=== PATIENT | male | born 1980 | race Caucasian/White ===

== ENCOUNTER 2021-11-26 13:11 | Emergency (ER) | payer SELFPAY ==
--- NOTE | 2021-11-26 13:54 | XRAY ---
Indication: Pain and swelling following injury. Comparison: None 3 portable views right hand demonstrates nondisplaced fracture base 5th metacarpal with soft tissue swelling. No other bony, articular, or soft tissue abnormalities.
--- NOTE | 2021-11-26 14:16 | ERPHSYRPT ---
- History of Present Illness Source: patient Exam Limitations: no limitations Patient Subjective Stated Complaint: PT states "I was working on a house and tripped carrying a saw and when I landed I think my hand twisted wrong and the outside of my right hand is killing me." Triage Nursing Assessment: Pt presented alert and oriented X3, skin pwd. Pt right lateral hand is tender and slightly swollen. CSM X 4 throughout. Physician History: 41 yo wm fell while working on father in law's house injuring his R hand. He denies other injuries. Pt is R handed and pain is moderate. It is worse w movement. Occurred: just prior to arrival Method of Injury: fell Quality: constant Severity of Pain-Max: moderate Severity of Pain-Current: mild Extremities Pain Location: hand: right Modifying Factors: Improves With: nothing, movement Associated Symptoms: none Allergies/Adverse Reactions: No Known Drug Allergies Allergy (Verified 11/26/21 13:24) Hx Tetanus, Diphtheria Vaccination/Date Given: Yes Hx Influenza Vaccination/Date Given: No Hx Pneumococcal Vaccination/Date Given: No Immunizations Up to Date: Yes Travel Risk - International Travel Have you traveled outside of the country in past 3 weeks: No - Coronavirus Screening Are you exhibiting any of the following symptoms?: No Close contact with a COVID-19 positive Pt in past 14-21 Days: No - Vaccine Status Have you recieved a Covid-19 vaccination: No - Review of Systems Constitutional: No Symptoms Eyes: No Symptoms Ears, Nose, & Throat: No Symptoms Respiratory: No Symptoms Cardiac: No Symptoms Abdominal/Gastrointestinal: No Symptoms Genitourinary Symptoms: No Symptoms Skin: No Symptoms Neurological: No Symptoms Psychological: No Symptoms Endocrine: No Symptoms Hematologic/Lymphatic: No Symptoms Immunological/Allergic: No Symptoms - Past Medical History Pertinent Past Medical History: Yes GI Medical History: GERD - Past Surgical History Past Surgical History: Yes Other Surgical History: oral - Social History Smoking Status: Current every day smoker How long have you smoked: years Exposure to second hand smoke: Yes Drug Use: none Patient Lives Alone: No - Nursing Vital Signs Nursing Vital Signs: Initial Vital Signs Temperature 98.3 F 11/26/21 13:20 Pulse Rate 85 11/26/21 13:20 Respiratory Rate 20 11/26/21 13:20 Blood Pressure 141/82 11/26/21 13:20 O2 Sat by Pulse Oximetry 97 11/26/21 13:20 Pain Scale Pain Intensity 10 Hypertensive - Physical Exam General Appearance: no apparent distress Eyes, Ears, Nose, Throat Exam: normal ENT inspection, TMs normal, pharynx no rmal, moist mucous membranes Neck Exam: normal inspection, non-tender, supple, full range of motion, No Brudzinski, No Kernig's, No meningismus, No carotid bruit Cardiovascular/Respiratory Exam: chest non-tender, normal breath sounds, regular rate/rhythm, heart sounds normal, no ecchymosis Abdominal Exam: non-tender, soft Back Exam: normal inspection, normal range of motion, No CVA tenderness, No vertebral tenderness Shoulder Exam: normal inspection, non-tender Elbow/Forearm Exam: normal inspection, non-tender Wrist Exam: normal inspection, non-tender Hand Exam: bone tenderness (TTP R ulnar hand w edema/No ecchymosis/Good radial pulse, distal sensation, and capillary return) DTR - Upper Extremity Exam: bicep (R): 2+, bicep (L): 2+ Neuro/Tendon Exam: normal sensation, normal motor functions, normal tendon functions, responds to pain Mental Status Exam: alert, oriented x 3, cooperative Skin Exam: normal color, warm, dry SpO2 Interpretation: normal SpO2: 97 O2 Delivery: Room Air Procedures - Splinting Time of Procedure: 14:08 Location of Splint: Right, Hand Type of Splint: Orthoglass Short Arm Splint Splint Applied By: ED Physician Pre-Proc Neuro Vasc Exam: normal Post-Proc Neuro Vasc Exam: neurovascular intact - Course Nursing assessment & vital signs reviewed: Yes - Radiology Exams Hand X-ray Interpretation: Discussed w/ radiologist (R [id number] fx base of 5th digit) Ordered Tests: Active Orders 24 hr Category Date Time Status HAND (MINIMUM 3 VIEWS) Stat Exams 11/26/21 Completed Medication Summary Discontinued Medications Generic Name Dose Route Start Last Admin Trade Name Freq PRN Reason Stop Dose Admin Ketorolac Tromethamine 30 mg 11/26/21 14:16 11/26/21 14:22 Ketorolac Tromethamine 30 Mg/Ml Inj IM 11/26/21 14:17 30 mg STAT ONE Administration Ketorolac Tromethamine Confirm 11/26/21 14:18 Ketorolac Tromethamine 30 Mg/Ml Inj Administered 11/26/21 14:19 Dose 30 mg .ROUTE .STK-MED ONE - Progress Progress: improved Counseled pt/family regarding: diagnosis, need for follow-up, rad results - Departure Departure Disposition: Home Clinical Impression: Metacarpal bone fracture Condition: Stable Critical Care Time: No Referrals: [facility] - [facility] [employer] [facility] [NON-STAFF PHY W/O PRIVILEGES] - Follow up/PCP as directed Instructions: Hand Fracture (DC) Additional Instructions: Ice for 12-24 hours Pain meds as needed(use a stool softener) Follow up in Ortho clinic M- 8- or back in [place] Prescriptions: Hydrocodone/Acetaminophen [Hydrocodone-Acetamin 5-325 mg] 1 each PO Q4HPRN PRN #6 tablet MDD 4 tabs PRN Reason: Pain
[2021-11-26] MEDS ORDERED: TORAdol 30 mg Injection ONE (14:18)
[2021-11-26] MEDS: TORAdol 30 mg Injection IM ONE (14:22)
[2021-11-26 14:42] VITALS: BP 132/88; PULSE 90
[2021-11-26 15:27] VITALS: O2SAT 97
== END 2021-11-26 14:42 | disposition home or self-care (01) ==
LOC: ED 13:11
DX: S62.346A Nondisplaced fracture of base of fifth metacarpal bone, right hand, initial encounter for closed fracture (principal); W01.0XXA Fall on same level from slipping, tripping and stumbling without subsequent striking against object, initial encounter
CPT/HCPCS: 29125; 73130; 96372; 99283; J1885